=== PATIENT | female | born 1995 | race Caucasian/White ===

== ENCOUNTER 2021-06-05 09:08 | Inpatient (IN) ==
[2021-06-05] MEDS ORDERED: Famotidine 20 MG/2 ML VIAL IVP PRN (10:09)
[2021-06-05] MEDS ORDERED: Naloxone 0.4 MG/ML INJ IVP PRN ×2 (10:09→11:52)
[2021-06-05] MEDS ORDERED: Metoclopramide 10 MG/2 ML VIAL IVP PRN (10:09)
[2021-06-05] MEDS ORDERED: *HR* Nalbuphine 10 MG/ML AMPUL IV PRN (10:09)
[2021-06-05] MEDS ORDERED: Ondansetron 4 MG/2 ML VIAL IVP PRN ×2 (10:09→11:52)
[2021-06-05] MEDS ORDERED: Oxytocin 20 units/ LR 1000 mL 20 UNIT/1,000 ML BAG IVC SCH (10:15)
[2021-06-05] MEDS: Ringers Solution, Lactated 1,000 ML IVC SCH ×2 (10:51→16:34)
[2021-06-05 11:30] LABS: Basophils % 0.3 %; Eosinophils % 0.3 %; Hematocrit 40.1 % (35.3-44.9); Lymphocytes # 1.9 K/mcL (0.6-4.6); Lymphocytes % 15.1 %; Mean Corpuscular HGB Conc 32.4 g/dL (31.6-35.5); Mean Corpuscular Hemoglobin 30.4 pg (28.0-33.3); Mean Corpuscular Volume 93.7 fL (83.0-100.0); Mean Platelet Volume 10.6 fL (9.4-12.4); Monocytes # 1.3 K/mcL (0.0-1.3); Neutrophils # 9.4 K/mcL (1.6-8.9); Platelet Count 242 K/mcL (140-400); Red Blood Count 4.28 M/mcL (3.82-4.97); Segmented Neutrophils % 73.3 %; White Blood Count 12.8 K/mcL (4.3-11.1)
[2021-06-05] MEDS ORDERED: EPHEDrine 50 MG/ML VIAL IVP PRN (11:52)
[2021-06-05] MEDS ORDERED: *HR* FentaNYL (PF) 100 MCG/2 ML VIAL EP ONE (11:52)
[2021-06-05] MEDS ORDERED: Ropivacaine/PF 0.2% 20 ML VIAL EP ONE (11:52)
[2021-06-05] MEDS ORDERED: Epidural Premix (fent/bupiv) 110 ML EP SCH (12:00)
[2021-06-05 12:07] LABS: Influenza A PCR Negative (Negative); Influenza B PCR Negative (Negative); Resp. Syncytial Virus PCR Negative (Negative)
[2021-06-05 12:08] LABS: SARS-CoV-2 by PCR (In House) Negative (Negative)
[2021-06-05] MEDS ORDERED: Methylergonovine 0.2 MG/ML AMPUL IM ONE (12:34)
[2021-06-05 14:28] LABS: Amphetamine Screen,Urine Negative ng/mL (Cutoff=1000); Barbiturate Screen,Urine Negative ng/mL (Cutoff=200); Benzodiazepines Screen,Urine Negative ng/mL (Cutoff=200); Cannabinoid Screen,Urine Negative ng/mL (Cutoff = 50); Cocaine Screen,Urine Negative ng/mL (Cutoff= 300); Opiate Screen,Urine Negative ng/mL (Cutoff=300); Phencyclidine Screen,Urine Negative ng/mL (Cutoff=25)
[2021-06-05] MEDS ORDERED: Ropivacaine/PF 0.2% 20 ML VIAL ONE (15:24)
[2021-06-06] MEDS ORDERED: Oxytocin 20 units/ LR 1000 mL 20 UNIT/1,000 ML BAG IVC SCH (00:01)
[2021-06-06] MEDS ORDERED: Oxytocin 20 units/ LR 1000 mL 20 UNIT/1,000 ML BAG IVC ONE (00:01)
[2021-06-06] MEDS ORDERED: Ondansetron ODT 4 MG TAB.RAPDIS SL PRN (00:01)
[2021-06-06] MEDS ORDERED: Benzocaine/Menthol 56 GM AEROSOL SPRAY TP PRN (00:01)
[2021-06-06] MEDS ORDERED: Lanolin 7 G OINT...G. TP PRN (00:01)
[2021-06-06] MEDS: Ibuprofen 600 MG TABLET PO SCH ×4 (01:29→19:52)
[2021-06-06] MEDS: Acetaminophen 325 MG TABLET PO SCH ×4 (01:30→19:52)
[2021-06-06] MEDS: Prenatal Vit/FA 1 EACH TABLET PO SCH (09:06)
[2021-06-07] MEDS: Ibuprofen 600 MG TABLET PO SCH ×2 (01:51→07:46)
[2021-06-07] MEDS: Acetaminophen 325 MG TABLET PO SCH (01:51)
[2021-06-07] MEDS: Prenatal Vit/FA 1 EACH TABLET PO SCH (07:46)
[2021-06-07 10:56] VITALS: BP 118/82; PULSE 78; TEMP 98.3; O2SAT 98
== END 2021-06-07 12:35 | disposition home or self-care (01) | DRG 807 ==
LOC: 1NENULAB 09:08 → 1NENUOBS 06-06
PROVIDERS: ADMIT Obstetrics & Gynecology; ATTEND Obstetrics & Gynecology